=== PATIENT | female | born 1970 | race Caucasian/White ===

== ENCOUNTER → 2020-05-13 10:20 | Outpatient (CLI) | payer BC, SELFPAY ==
--- NOTE | ~2020-05-13 | MM_ITS ---
EXAMINATION: MM screening [facility] BI w kee HISTORY: Screening mammogram TECHNIQUE: Craniocaudal and mediolateral oblique 3-D tomosynthesis images were obtained and synthetic 2-D images were generated. CAD analysis was submitted and interpreted. COMPARISON: 04/20/2019, 03/18/2018, 01/15/2017 BREAST PARENCHYMAL COMPOSITION: There are scattered areas of fibroglandular density. FINDINGS: There is no evidence of suspicious mass, calcification, or architectural distortion to sugg est malignancy in either breast. There has been no suspicious interval change. IMPRESSION: 1. No mammographic evidence of malignancy. 2. Recommend routine screening mammography in one year. BI-RADS Category 1: Negative Reviewed, dictated and finalized at location A. MOLDER
--- NOTE | ~2020-05-13 | DEXA_ITS ---
Bone Density Report Name: Margot Vargas Age: 49 Sex: Female Ethnicity: White Date of : 1970 Indication: postmenopausal; screening for osteoporosis; parental hip fracture; Referring Provider: ANTOINETTE, MARLENI Study: Bone densitometry was performed. Exam Date: May 13, 2020 Accession number: [id number] Bone Density: Region BMD T-score Z-score Classification AP Spine (L1-L4) 0.900 -1.3 -0.6 Osteopenia Femoral Neck (Left) 0.750 -0.9 -0.1 Normal Total Hip (Left) 0.883 -0.5 0.0 Normal Femoral Neck (Right) 0.729 -1.1 -0.3 Osteopenia Total Hip (Right) 0.869 -0.6 -0.1 Normal Total Hip Mean 0.876 -0.6 -0.1 Normal World Health Organization criteria for BMD impression classify patients as: Normal (T-score at or above -1.0), Osteopenia (T-score between -1.0 and -2.5), or Osteoporosis (T-score at or below -2.5). 10-year Fracture Risk(1): Major Osteoporotic Fracture 8.4% Hip Fracture 0.2% Reported Risk Factors: [place] (), Neck BMD=0.729, BMI=29.5, parental fracture (1) FRAX(R) Version 3.08. Fracture probability calculated for an untreated patient. Fracture probability may be lower if the patient has received treatment. Previous Exams: Region Exam Age BMD T-score BMD Change BMD Change Date g/cm2 vs Baseline vs Previous AP Spine(L1-L4) 05/13/2020 49 0.900 -1.3 -0.142* -0.089* 01/15/2017 46 0.989 -0.5 -0.053* -0.053* 11/06/2012 41 1.043 0.0 Total Hip(Left) 05/13/2020 49 0.883 -0.5 -0.045* -0.022 01/15/2017 46 0.905 -0.3 -0.023 -0.023 11/06/2012 41 0.928 -0.1 Total Hip(Right) 05/13/2020 49 0.869 -0.6 -0.055* -0.044* 01/15/2017 46 0.913 -0.2 -0.011 -0.011 11/06/2012 41 0.924 -0.1 *Denotes significance at 95% confidence level, LSC for AP Spine = 0.022 g/cm2, LSC for Total Hip = 0.027 g/cm2 Clinical Information Provided by Patient: Parent has had a hip fracture Has used the following medications: Vitamin D, Calcium, DEPO, MTV Patient maximum height was 65.5 Menopause Age: 45 No regular weight bearing exercise Drinks caffeinated beverages Onset of menses at age 12 Number of children 3 Impression: The patient has low bone mass, based on the Total Spine T-score. The patient has an estimated ten-year risk of hip fracture of 0.2% and an estimated ten-year risk of major fracture of 8.4
== END ==
PROVIDERS: PCP Internal Medicine; Visit Provider Nurse Practitioner
DX: Z12.31 Encounter for screening mammogram for malignant neoplasm of breast (principal); Z78.0 Asymptomatic menopausal state; M85.89 Other specified disorders of bone density and structure, multiple sites
CPT/HCPCS: 77063; 77067; 77080

== ENCOUNTER → 2021-05-17 10:24 | Outpatient (CLI) | payer BC, SELFPAY ==
--- NOTE | ~2021-05-17 | MM_ITS ---
EXAMINATION: MM screening [facility] BI w kee HISTORY: Screening mammogram TECHNIQUE: Craniocaudal and mediolateral oblique 3-D tomosynthesis images were obtained and synthetic 2-D images were generated. CAD analysis was submitted and interpreted. COMPARISON: 06/02/2020, 04/20/2019, 03/18/2018 BREAST PARENCHYMAL COMPOSITION: There are scattered areas of fibroglandular density. FINDINGS: There is no evidence of suspicious mass, calcification, or architectural distortion to sugg est malignancy in either breast. There has been no suspicious interval change. IMPRESSION: 1. No mammographic evidence of malignancy. 2. Recommend routine screening mammography in one year. BI-RADS Category 1: Negative Reviewed, dictated and finalized at location A. TY GENERAL COUNSEL
== END ==
PROVIDERS: PCP Internal Medicine; Visit Provider Nurse Practitioner
DX: Z12.31 Encounter for screening mammogram for malignant neoplasm of breast (principal)
CPT/HCPCS: 77063; 77067

== ENCOUNTER → 2022-05-21 10:23 | Outpatient (CLI) | payer BC, SELFPAY ==
--- NOTE | ~2022-05-21 | MM_ITS ---
EXAMINATION: MM screening [facility] BI w kee HISTORY: Screening mammogram TECHNIQUE: Craniocaudal and mediolateral oblique 3-D tomosynthesis images were obtained and synthetic 2-D images were generated. CAD analysis was submitted and interpreted. COMPARISON: May 17, 2021, May 13, 2020, April 20, 2019 bilateral screening mammogram examin ations BREAST PARENCHYMAL COMPOSITION: There are scattered areas of fibroglandular density. FINDINGS: There is no evidence of suspicious mass, calcification, or architectural distortion to sugg est malignancy in either breast. There has been no suspicious interval change. IMPRESSION: 1. No mammographic evidence of malignancy. 2. Recommend routine screening mammography in one year. BI-RADS Category 1: Negative Reviewed, dictated and finalized at location A. INTERN
== END ==
PROVIDERS: PCP Internal Medicine; Visit Provider Obstetrics & Gynecology Gynecology
DX: Z12.31 Encounter for screening mammogram for malignant neoplasm of breast (principal)
CPT/HCPCS: 77063; 77067

== ENCOUNTER → 2022-05-24 12:15 | Outpatient (CLI) | payer BC, SELFPAY ==
--- NOTE | ~2022-05-24 | DEXA_ITS ---
Bone Density Report Name: YASMINE DINH Age: 51 Sex: Female Ethnicity: White Date of : 1970 Indication: osteopenia; parental hip fracture;postmenopausal Referring Provider: ANTOINETTE, MARLENI Study: Bone densitometry was performed. Exam Date: May 24, 2022 Accession number: [id number] Bone Density: Region BMD T-score Z-score Classification AP Spine (L1-L4) 0.897 -1.4 -0.5 Osteopenia Femoral Neck (Left) 0.745 -0.9 0.0 Normal Total Hip (Left) 0.872 -0.6 0.0 Normal Femoral Neck (Right) 0.752 -0.9 0.0 Normal Total Hip (Right) 0.889 -0.4 0.1 Normal Total Hip Mean 0.881 -0.5 0.1 Normal World Health Organization criteria for BMD impression classify patients as: Normal (T-score at or above -1.0), Osteopenia (T-score between -1.0 and -2.5), or Osteoporosis (T-score at or below -2.5). 10-year Fracture Risk(1): Major Osteoporotic Fracture 9.3% Hip Fracture 0.2% Reported Risk Factors: [place] (), Neck BMD=0.752, BMI=29.9, parental fracture (1) FRAX(R) Version 3.08. Fracture probability calculated for an untreated patient. Fracture probability may be lower if the patient has received treatment. Previous Exams: Region Exam Age BMD T-score BMD Change BMD Change Date g/cm2 vs Baseline vs Previous AP Spine(L1-L4) 05/24/2022 51 0.897 -1.4 -0.146* -0.004 05/13/2020 49 0.900 -1.3 -0.142* -0.089* 01/15/2017 46 0.989 -0.5 -0.053* -0.053* 11/06/2012 41 1.043 0.0 Total Hip(Left) 05/24/2022 51 0.872 -0.6 -0.056* -0.011 05/13/2020 49 0.883 -0.5 -0.045* -0.022 01/15/2017 46 0.905 -0.3 -0.023 -0.023 11/06/2012 41 0.928 -0.1 Total Hip(Right) 05/24/2022 51 0.889 -0.4 -0.035* 0.020 05/13/2020 49 0.869 -0.6 -0.055* -0.044* 01/15/2017 46 0.913 -0.2 -0.011 -0.011 11/06/2012 41 0.924 -0.1 *Denotes significance at 95% confidence level, LSC for AP Spine = 0.022 g/cm2, LSC for Total Hip = 0.027 g/cm2 Clinical Information Provided by Patient: Parent has had a hip fracture Has used the following medications: HRT (i.e. estrogen/hormone therapy), Vitamin D, Calcium, DEPO, MTV Patient maximum height was 65.5 Menopause Age: 45 No regular weight bearing exercise Drinks caffeinated beverages Onset of menses at age 12 Number of children 3
== END ==
PROVIDERS: PCP Internal Medicine; Visit Provider Nurse Practitioner
DX: M85.88 Other specified disorders of bone density and structure, other site (principal)
CPT/HCPCS: 77080

== ENCOUNTER → 2023-05-24 10:15 | Outpatient (CLI) | payer BC, SELFPAY ==
--- NOTE | ~2023-05-24 | MM_ITS ---
EXAMINATION: [place] [facility] [place] HISTORY: Screening mammogram TECHNIQUE: Craniocaudal and mediolateral oblique 3-D tomosynthesis images were obtained and synthetic 2-D images were generated. CAD analysis was submitted and interpreted. COMPARISON: 05/21/2022, 05/17/2021, 05/13/2020 BREAST PARENCHYMAL COMPOSITION: There are scattered areas of fibroglandular density. FINDINGS: No suspicious mass, calcification, or architectural distortion are identified in either deonna ast to suggest malignancy. There has been no suspicious interval change. IMPRESSION: 1. No mammographic evidence of malignancy. 2. Recommend routine screening mammography in one year. BI-RADS Category 1: Negative Reviewed, dictated and finalized at location A. IX CONSULTANT
== END ==
PROVIDERS: PCP Obstetrics & Gynecology Gynecology; Visit Provider Obstetrics & Gynecology Gynecology
DX: Z12.31 Encounter for screening mammogram for malignant neoplasm of breast (principal)
CPT/HCPCS: 77063; 77067

== ENCOUNTER 2024-05-27 10:46 | Outpatient (CLI) | payer BC, SELFPAY ==
--- NOTE | ~2024-05-27 | MM_ITS ---
EXAMINATION: MM screening [facility] BI w kee HISTORY: Screening TECHNIQUE: Craniocaudal and mediolateral oblique 3-D tomosynthesis images were obtained and synthetic 2-D images were generated. CAD analysis was submitted and interpreted. COMPARISON: Comparison to multiple prior studies sequentially, with oldest reviewed study dated 03/08. BREAST PARENCHYMAL COMPOSITION: Not Dense: The breasts are almost entirely fatty. FINDINGS: There is no evidence of suspicious mass, calcification, or architectural distortion to sugg est malignancy in either breast. There has been no suspicious interval change. IMPRESSION: 1. No mammographic evidence of malignancy. 2. Recommend routine screening mammography in one year. BI-RADS Category 1: Negative Reviewed, dictated and finalized at location B. S ROOM ASSISTANT
== END 2024-05-27 10:47 | disposition home or self-care (01) ==
PROVIDERS: PCP Nurse Practitioner Family; Visit Provider Nurse Practitioner
DX: Z12.31 Encounter for screening mammogram for malignant neoplasm of breast (principal)
CPT/HCPCS: 77063; 77067

== ENCOUNTER 2024-10-02 08:48 | Outpatient (CLI) | payer BC, SELFPAY ==
--- NOTE | ~2024-10-02 | DEXA_ITS ---
Bone Density Report Name: YASMINE DINH Age: 53 Sex: Female Ethnicity: White Date of : 1970 Indication: osteopenia; parental hip fracture; Referring Provider: ANTOINETTE, MARLENI Study: Bone densitometry was performed. Exam Date: October 02, 2024 Accession number: [id number] Bone Density: Region BMD T-score Z-score Classification AP Spine(L1-L4) 0.863 -1.7 -0.6 Osteopenia Femoral Neck (Left) 0.703 -1.3 -0.3 Osteopenia Total Hip (Left) 0.867 -0.6 0.1 Normal Femoral Neck (Right) 0.706 -1.3 -0.2 Osteopenia Total Hip (Right) 0.846 -0.8 -0.1 Normal Total Hip Mean 0.857 -0.7 0.0 Normal World Health Organization criteria for BMD impression classify patients as: Normal (T-score at or above -1.0), Osteopenia (T-score between -1.0 and -2.5), or Osteoporosis (T-score at or below -2.5). 10-year Fracture Risk(1): Major Osteoporotic Fracture 12% Hip Fracture 0.4% Reported Risk Factors: [place] (), Neck BMD=0.703, BMI=29.8, parental fracture (1) FRAX(R) Version 3.08. Fracture probability calculated for an untreated patient. Fracture probability may be lower if the patient has received treatment. Previous Exams: -- Region Exam Age BMD T-score BMD Change BMD Change Date g/cm2 vs Baseline vs Previous -- AP Spine (L1-L4) 10/02/2024 53 0.863 -1.7 -17.3%* -3.8%* 05/24/2022 51 0.897 -1.4 -14.0%* -0.4% 05/13/2020 49 0.900 -1.3 -13.6%* -9.0%* 01/15/2017 46 0.989 -0.5 -5.1%* -5.1%* 11/06/2012 41 1.043 0.0 Total Hip(Left) 10/02/2024 53 0.867 -0.6 -6.6%* -0.6% 05/24/2022 51 0.872 -0.6 -6.0%* -1.3% 05/13/2020 49 0.883 -0.5 -4.8%* -2.4% 01/15/2017 46 0.905 -0.3 -2.4% -2.4% 11/06/2012 41 0.928 -0.1 Total Hip(Right) 10/02/2024 53 0.846 -0.8 -8.4%* -4.8%* 05/24/2022 51 0.889 -0.4 -3.8%* 2.3% 05/13/2020 49 0.869 -0.6 -6.0%* -4.9%* 01/15/2017 46 0.913 -0.2 -1.2% -1.2% 11/06/2012 41 0.924 -0.1 -- *Denotes significance at 95% confidence level, LSC for AP Spine = 0.022 g/cm2, LSC for Total Hip = 0.027 g/cm2 Clinical Information Provided by Patient: Parent has had a hip fracture Has used the following medications: HRT (i.e. estrogen/hormone therapy), Vitamin D, Calcium Patient maximum height was 65.5 Menopause Age: 45 Drinks caffeinated beverages Onset of menses at age 12 Number of children 3 Impression: The patient has low bone mass, based on the Total Spine T-score. The patient has an estimated ten-year risk of hip fracture of 0.4% and an estimated ten-year risk of major fracture of 12%, based on the WHO FRAX algorithm. The patient has risk factors, including: parental hip fracture. The BMD for the AP Spine (L1-L4) decreased, changing by -3.8% since the last DXA exam. The BMD for the Total Hip(Right) decreased, changing by -4.8% since the last DXA exam. Discussion: BONE DENSITY IS LOW AT ONE OR MORE SKELETAL SITES. This patient's lowest T-score is low at one or more skeletal sites. It meets the World Health Organization's (WHO) criteria for ?low bone mass? (T-score between -1.0 and -2.5). The patient's 10-year risk of fracture as calculated by FRAX is less than the threshold where pharmacological therapy is recommended by the National Osteoporosis Foundation (NOF). However, all treatment decisions require clinical judgment and consideration of individual patient factors, including patient preferences, comorbidities, previous drug use, risk factors not captured in the FRAX model (e.g., frailty, falls, vitamin D deficiency, increased bone turnover, interval significant decline in bone density) and possible under or overestimation of fracture risk by FRAX. The patient should follow a healthful lifestyle (good nutrition with adequate calcium and vitamin D, and appropriate weight-bearing exercise). Follow-Up: Consider repeating this study in 2 years to reassess this patient's status, or sooner if there is some new clinical indication. Reported by: MARIEL on 10/02/2024 9:08:00 AM. Reviewed, dictated and finalized at location A.
== END 2024-10-02 08:49 | disposition home or self-care (01) ==
LOC: MICIMG 08:49
PROVIDERS: PCP Nurse Practitioner Family; Visit Provider Nurse Practitioner
DX: M85.89 Other specified disorders of bone density and structure, multiple sites (principal)
CPT/HCPCS: 77080